=== PATIENT | male | born 1940 | race Caucasian/White ===

== ENCOUNTER 2019-08-07 16:59 | Inpatient (IN) | payer MEDICARE, OTHER ==
[2019-08-07] MEDS ORDERED: Docusate Sodium 100 MG Cap PO PRN (17:01)
[2019-08-07] MEDS ORDERED: Albuterol/Ipratropium 3.0-0.5 MG/3 ML Neb Soln NEB PRN (17:01)
[2019-08-07] MEDS ORDERED: Lidocaine 1% with EPINEPHrine 1:100,000 20 ML MDV ONE (17:18)
[2019-08-07] MEDS ORDERED: Lidocaine 1% with EPINEPHrine 1:100,000 20 ML MDV INJECT ONE (17:30)
[2019-08-07 18:05] LABS: CHLORIDE,CL 96 mEq/L (98-106); SODIUM,NA 132 mEq/L (136-145)
[2019-08-07] MEDS: Acetaminophen 325 MG Tab PO PRN (18:31)
[2019-08-07] MEDS: Sodium Chloride 0.9% 1,000 ML IV SCH (18:32)
[2019-08-07] MEDS: Clindamycin Phosphate in D5W 300 MG in Premix Bag 1 BAG IV SCH ×4 (18:32→23:57)
[2019-08-07] MEDS ORDERED: Ondansetron 4 MG/2 ML SDV IVPUSH PRN (18:49)
[2019-08-07] MEDS: Enoxaparin 40 MG/0.4 ML Syringe SUBCUT SCH (19:12)
[2019-08-07] MEDS: metFORMIN 500 MG Tab PO SCH (19:12)
[2019-08-07] MEDS: Ibuprofen 200 MG Tab PO PRN (19:13)
[2019-08-08] MEDS: Sodium Chloride 0.9% 1,000 ML IV SCH ×3 (03:35→21:37)
[2019-08-08] MEDS: Acetaminophen 325 MG Tab PO PRN ×4 (03:37→19:56)
[2019-08-08] MEDS: Clindamycin Phosphate in D5W 300 MG in Premix Bag 1 BAG IV SCH ×8 (06:02→23:37)
[2019-08-08] MEDS: Ibuprofen 200 MG Tab PO PRN ×3 (06:06→23:42)
[2019-08-08] MEDS: metFORMIN 500 MG Tab PO SCH ×2 (07:58→17:47)
[2019-08-08] MEDS: Lisinopril 20 MG Tab PO SCH (07:58)
--- NOTE | 2019-08-08 08:48 | OR ---
DATE OF OPERATION: 08/07/2019 Mr. Fang is admitted by Dawit Lakhani for sepsis related to a gluteal abscess. This is present in his inner lower gluteal region inferior and lateral to the perineum. He had a prior cyst there/boil, which over the last week has gotten larger. White count is elevated. He is getting admitted for IV antibiotics, and Dawit asked me to come and drain this before I left for the evening. DESCRIPTION OF PROCEDURE: The patient was placed on his left side with the right leg elevated. The large abscess in the infra-medial gluteal area on the left side was isolated, prepped with Betadine. 1% lidocaine was used for local anesthesia and topical ethyl chloride. A 1.5 to 2 cm incision was made with an 11 blade scalpel and voluminous amounts of drainage were obtained. This was brownish, fecal smelling-type liquid. Culture was obtained by Dawit Lakhani during this procedure. We were able to express significant and copious amounts of fluid out of this abscess area. We then packed it with approximately 6 to 7 inches iodoform gauze and placed a pressure dressing over the top of it. The patient tolerated the procedure well. There were no complications. SERA/VITALIY /[id number]
--- NOTE | 2019-08-08 14:39 | PCM.PN ---
- General Info Date of Service: 08/08/19 Admission Dx/Problem (Free Text): Abscess of Buttock Functional Status: Reports: Pain Controlled, Tolerating Diet - Review of Systems General: Reports: Fever, Weakness, Fatigue, Malaise HEENT: Reports: No Symptoms Pulmonary: Denies: Shortness of Breath, Cough Cardiovascular: Denies: Chest Pain, Edema, Lightheadedness Gastrointestinal: Denies: Abdominal Pain, Nausea, Vomiting Genitourinary: Reports: No Symptoms Skin: Reports: Other (discomfort to left buttock) Neurological: Reports: Weakness - Patient Data Vitals - Most Recent: Last Vital Signs Temp 97.7 F 08/08/19 11:59 Pulse 79 08/08/19 11:59 Resp 18 08/08/19 11:59 BP 130/62 08/08/19 11:59 Pulse Ox 98 08/08/19 11:59 Weight - Most Recent: 249 lb 8 oz I&O - Last 24 Hours: Intake & Output 08/07/19 08/08/19 08/08/19 22:59 06:59 14:59 Intake Total 50 1680 1000 Output Total 250 Balance 50 1430 1000 Lab Results Last 24 Hours: Laboratory Results - last 24 hr 08/07/19 08/07/19 08/07/19 Range/Units 17:01 17:01 17:15 WBC 25.5 H* (5.0-10.0) 10^3/uL RBC 5.13 (4.50-6.00) 10^6/uL Hgb 15.4 (14.0-18.0) g/dL Hct 45.2 (40.0-54.0) % MCV 88.1 (82.0-94.0) fL MCH 30.0 (27.0-32.0) pg MCHC 34.1 (33.0-38.0) g/dL RDW Coeff of Vivian 13.4 (11.0-15.0) % Plt Count 358 (150-400) 10^3/uL Add Manual Diff Yes Neutrophils % (Manual) 86 H (35-85) % Band Neutrophils % 6 H (0-5) % Lymphocytes % (Manual) 3 L (21-55) % Monocytes % (Manual) 5 (2-12) % Absolute Neutrophils (1.80-7.00) 10^3/uL Lymphocytes # (Manual) (1.00-4.80) 10^3/uL Monocytes # (Manual) (0.00-0.80) 10^3/uL Sodium (136-145) mEq/L Potassium (3.5-5.0) mEq/L Chloride (98-106) mEq/L Carbon Dioxide (21-32) mmol/L BUN (7-18) mg/dL Creatinine (0.7-1.3) mg/dL Est Cr Clr Drug Dosing Estimated GFR (MDRD) (>=60) mL/min Glucose (75-99) mg/dL POC Glucose (75-105) mg/dl Lactic Acid 1.8 (0.4-2.0) mmol/L Calcium (8.4-10.1) mg/dL Total Bilirubin (0.0-1.0) mg/dL AST (15-37) U/L ALT (12-78) U/L Alkaline Phosphatase (46-116) U/L C-Reactive Protein (0.2-0.8) mg/dL Total Protein (6.4-8.2) g/dL Albumin (3.4-5.0) g/dL Urine Color Yellow (YELLOW) Urine Appearance Slightly cloudy (CLEAR) Urine pH 5.5 (4.5-8.0) Ur Specific [place] >= 1.030 H (1.003-1.020) Urine Protein 100 H (NEGATIVE) mg/dL Urine Glucose (UA) 500 H (NEGATIVE) mg/dL Urine Ketones 40 H (NEGATIVE) mg/dL Urine Occult Blood Moderate H (NEGATIVE) Urine Nitrite Negative (NEGATIVE) Urine Bilirubin Negative (NEGATIVE) Urine Urobilinogen 1.0 (0.2-1.0) EU/dL Ur Leukocyte Esterase Negative (NEGATIVE) Urine RBC 0-5 (0-5) /HPF Urine WBC Not seen (0-5) /HPF Ur Epithelial Cells Occasional H (NOT SEEN) /HPF Amorphous Sediment Few H (NOT SEEN) /HPF Urine Mucus Few H (NOT SEEN) /HPF 08/07/19 08/08/19 08/08/19 Range/Units 17:15 06:50 06:50 WBC 22.5 H* (5.0-10.0) 10^3/uL RBC 4.53 (4.50-6.00) 10^6/uL Hgb 13.6 L (14.0-18.0) g/dL Hct 40.6 (40.0-54.0) % MCV 89.6 (82.0-94.0) fL MCH 30.0 (27.0-32.0) pg MCHC 33.5 (33.0-38.0) g/dL RDW Coeff of Vivian 13.3 (11.0-15.0) % Plt Count 305 (150-400) 10^3/uL Add Manual Diff Yes Neutrophils % (Manual) 67 (35-85) % Band Neutrophils % 18 H (0-5) % Lymphocytes % (Manual) 10 L (21-55) % Monocytes % (Manual) 5 (2-12) % Absolute Neutrophils 19.13 H (1.80-7.00) 10^3/uL Lymphocytes # (Manual) 2.25 (1.00-4.80) 10^3/uL Monocytes # (Manual) 1.13 H (0.00-0.80) 10^3/uL Sodium 132 L 134 L (136-145) mEq/L Potassium 3.9 3.7 (3.5-5.0) mEq/L Chloride 96 L 101 (98-106) mEq/L Carbon Dioxide 20 L 23 (21-32) mmol/L BUN 19 H 21 H (7-18) mg/dL Creatinine 1.4 H 1.4 H (0.7-1.3) mg/dL Est Cr Clr Drug Dosing TNP 48.50 Estimated GFR (MDRD) 49 L 49 L (>=60) mL/min Glucose 267 H D 176 H D (75-99) mg/dL POC Glucose (75-105) mg/dl Lactic Acid (0.4-2.0) mmol/L Calcium 8.8 7.8 L (8.4-10.1) mg/dL Total Bilirubin 0.8 (0.0-1.0) mg/dL AST 21 (15-37) U/L ALT 32 (12-78) U/L Alkaline Phosphatase 67 (46-116) U/L C-Reactive Protein 19.7 H 22.1 H (0.2-0.8) mg/dL Total Protein 7.9 (6.4-8.2) g/dL Albumin 3.1 L (3.4-5.0) g/dL Urine Color (YELLOW) Urine Appearance (CLEAR) Urine pH (4.5-8.0) Ur Specific [place] (1.003-1.020) Urine Protein (NEGATIVE) mg/dL Urine Glucose (UA) (NEGATIVE) mg/dL Urine Ketones (NEGATIVE) mg/dL Urine Occult Blood (NEGATIVE) Urine Nitrite (NEGATIVE) Urine Bilirubin (NEGATIVE) Urine Urobilinogen (0.2-1.0) EU/dL Ur Leukocyte Esterase (NEGATIVE) Urine RBC (0-5) /HPF Urine WBC (0-5) /HPF Ur Epithelial Cells (NOT SEEN) /HPF Amorphous Sediment (NOT SEEN) /HPF Urine Mucus (NOT SEEN) /HPF 08/08/19 Range/Units 07:54 WBC (5.0-10.0) 10^3/uL RBC (4.50-6.00) 10^6/uL Hgb (14.0-18.0) g/dL Hct (40.0-54.0) % MCV (82.0-94.0) fL MCH (27.0-32.0) pg MCHC (33.0-38.0) g/dL RDW Coeff of Vivian (11.0-15.0) % Plt Count (150-400) 10^3/uL Add Manual Diff Neutrophils % (Manual) (35-85) % Band Neutrophils % (0-5) % Lymphocytes % (Manual) (21-55) % Monocytes % (Manual) (2-12) % Absolute Neutrophils (1.80-7.00) 10^3/uL Lymphocytes # (Manual) (1.00-4.80) 10^3/uL Monocytes # (Manual) (0.00-0.80) 10^3/uL Sodium (136-145) mEq/L Potassium (3.5-5.0) mEq/L Chloride (98-106) mEq/L Carbon Dioxide (21-32) mmol/L BUN (7-18) mg/dL Creatinine (0.7-1.3) mg/dL Est Cr Clr Drug Dosing Estimated GFR (MDRD) (>=60) mL/min Glucose (75-99) mg/dL POC Glucose 162 H (75-105) mg/dl Lactic Acid (0.4-2.0) mmol/L Calcium (8.4-10.1) mg/dL Total Bilirubin (0.0-1.0) mg/dL AST (15-37) U/L ALT (12-78) U/L Alkaline Phosphatase (46-116) U/L C-Reactive Protein (0.2-0.8) mg/dL Total Protein (6.4-8.2) g/dL Albumin (3.4-5.0) g/dL Urine Color (YELLOW) Urine Appearance (CLEAR) Urine pH (4.5-8.0) Ur Specific [place] (1.003-1.020) Urine Protein (NEGATIVE) mg/dL Urine Glucose (UA) (NEGATIVE) mg/dL Urine Ketones (NEGATIVE) mg/dL Urine Occult Blood (NEGATIVE) Urine Nitrite (NEGATIVE) Urine Bilirubin (NEGATIVE) Urine Urobilinogen (0.2-1.0) EU/dL Ur Leukocyte Esterase (NEGATIVE) Urine RBC (0-5) /HPF Urine WBC (0-5) /HPF Ur Epithelial Cells (NOT SEEN) /HPF Amorphous Sediment (NOT SEEN) /HPF Urine Mucus (NOT SEEN) /HPF Darryl Results Last 24 Hours: Microbiology 08/07/19 17:15 Wound Culture - Preliminary Groin, Left Gram Positive Cocci 08/07/19 17:01 Influenza Type A Antigen Screen - Final Nasopharyngeal Swab NEGATIVE INFLUENZA A VIRUS AG REFERENCE RANGE: NEGATIVE Influenza Type B Antigen Screen - Final NEGATIVE INFLUENZA B VIRUS AG REFERENCE RANGE: NEGATIVE Med Orders - Current: Current Medications Acetaminophen (Tylenol) 650 mg PO Q4H PRN PRN Reason: Pain (Mild 1-3)/fever Last Admin: 08/08/19 07:58 Dose: 650 mg Albuterol/Ipratropium (Duoneb 3.0-0.5 Mg/3 Ml) 3 ml NEB Q4H PRN PRN Reason: Shortness Of Breath/wheezing Docusate Sodium (Colace) 100 mg PO BID PRN PRN Reason: Constipation Enoxaparin Sodium (Lovenox) 40 mg SUBCUT Q24H [facility] Last Admin: 08/07/19 19:12 Dose: 40 mg Clindamycin Phosphate 300 mg/ (Premix) 50 mls @ 100 mls/hr IV Q6H [facility] Last Admin: 08/08/19 11:56 Dose: 100 mls/hr Sodium Chloride (Normal Saline) 1,000 mls @ 125 mls/hr IV ASDIRECTED [facility] Last Admin: 08/08/19 13:04 Dose: 125 mls/hr Ibuprofen (Motrin) 400 mg PO Q6H PRN PRN Reason: Pain (mild 1-3) Last Admin: 08/08/19 06:06 Dose: 400 mg Lisinopril (Prinivil) 20 mg PO DAILY [facility] Last Admin: 08/08/19 07:58 Dose: 20 mg Metformin HCl (Glucophage) 500 mg PO BIDMEALS [facility] Last Admin: 08/08/19 07:58 Dose: 500 mg Ondansetron HCl (Zofran) 4 - 8 mg IVPUSH Q6H PRN PRN Reason: Nausea/Vomiting Last Admin: 08/07/19 19:11 Dose: 4 mg Discontinued Medications Lidocaine/Epinephrine (Xylocaine 1% With Epinephrine 1:100,000) Confirm Administered Dose 20 ml .ROUTE .STK-MED ONE Stop: 08/07/19 17:19 Last Admin: 08/07/19 18:41 Dose: Not Given Lidocaine/Epinephrine (Xylocaine 1% With Epinephrine 1:100,000) 20 ml INJECT ONETIME ONE Stop: 08/07/19 17:31 Last Admin: 08/07/19 17:35 Dose: 20 ml - Exam General: Alert, Oriented HEENT: Mucous Membr. Moist/[place] Neck: Supple Lungs: Clear to Auscultation, Normal Respiratory Effort Cardiovascular: Regular Rate, Regular Rhythm GI/Abdominal Exam: Normal Bowel Sounds, Soft, Non-Tender Extremities: Normal Inspection, No Pedal Edema Skin: Other (Patient has enlarged erythematous area to left buttock near the crease. TEnder. Dressing is saturated with brownish foul smelling drainage. Packing removed and repacked per Dr. Macias. Patient tolerated well. ) Wound/Incisions: Erythema Improving Neurological: No New Focal Deficit Sepsis Event Note - Evaluation Sepsis Screening Result: No Definite Risk - Focused Exam Vital Signs: Vital Signs Temp Temp Pulse Resp BP BP BP 08/08/19 11:59 97.7 F 79 18 130/62 08/08/19 08:00 99.7 F 95 18 139/61 08/08/19 07:58 139/61 08/08/19 06:58 100.2 F 08/08/19 06:06 99.9 F 08/08/19 06:03 99.9 F 08/08/19 04:44 101 F H 08/08/19 03:37 99.7 F 92 20 148/70 H Pulse Ox 08/08/19 11:59 98 08/08/19 08:00 95 08/08/19 07:58 08/08/19 06:58 08/08/19 06:06 08/08/19 06:03 08/08/19 04:44 08/08/19 03:37 98 Date Exam was Performed: 08/08/19 Time Exam was Performed: 14:33 - Problem List & Annotations (1) Abscess of buttock, left SNOMED Code(s): 40759908 Code(s): L02.31 - CUTANEOUS ABSCESS OF BUTTOCK Status: Acute Priority: High Current Visit: Yes (2) CKD (chronic kidney disease) SNOMED Code(s): 233640436 Code(s): N18.9 - CHRONIC KIDNEY DISEASE, UNSPECIFIED Status: Acute Current Visit: Yes Qualifiers: Chronic kidney disease stage: stage 3 (moderate) Qualified Code(s): N18.3 - Chronic kidney disease, stage 3 (moderate) - Problem List Review Problem List Initiated/Reviewed/Updated: Yes - Assessment Assessment:: Abscess of Left Buttock Confusion CKD, stage 3 - Plan Plan:: Patient is doing much better today. Is alert, conversive, sitting up at edge of bed. He states pain is much improved today. Continues to run low grade fevers today. Pulse rate 80-100, improved. WBC 22.5, down from 25.5 yesterday. CRP increased to 22.1. Creatinine stable at 1.4. Dressing removed per Dr. Macias. Does continue to have redness, swelling and firmness to left buttock but Dr. Macias reports improvement from yesterday's exam. Bandages are saturated with brownish drainage. Packing removed. Foul odor noted. Repacked per Dr. Macias. Did contact DR. Malave at [facility] for recommendations for CT to determine if warranted to rule out fistula due to drainage and odor with abscess so close to rectal area. He advised to treat and wait as fistula would be very hard to see with swelling and fluid and likely does not warrant any surgical treatment until active infection is improved. Advised to monitor and recheck in [address] or surgical evaluation if continues to have open area with ongoing drainage or recurrence of abscess. Will continue with IV Cleocin. Await full culture report. Repeat labs in am. Change bandages as needed.
[2019-08-08] MEDS: Enoxaparin 40 MG/0.4 ML Syringe SUBCUT SCH (18:34)
[2019-08-09] MEDS: Clindamycin Phosphate in D5W 300 MG in Premix Bag 1 BAG IV SCH ×8 (05:56→23:23)
[2019-08-09] MEDS: Sodium Chloride 0.9% 1,000 ML IV SCH ×3 (05:58→23:21)
[2019-08-09] MEDS: Lisinopril 20 MG Tab PO SCH (07:34)
[2019-08-09] MEDS: metFORMIN 500 MG Tab PO SCH ×2 (07:34→17:22)
[2019-08-09] MEDS: Acetaminophen 325 MG Tab PO PRN ×3 (07:51→23:25)
--- NOTE | 2019-08-09 10:16 | PCM.PN ---
- General Info Date of Service: 08/09/19 Admission Dx/Problem (Free Text): Abscess of Buttock Functional Status: Reports: Pain Controlled, Tolerating Diet, Ambulating - Review of Systems General: Reports: Fever, Weakness, Fatigue, Malaise HEENT: Reports: No Symptoms Pulmonary: Denies: Shortness of Breath, Cough Cardiovascular: Denies: Chest Pain, Edema, Lightheadedness Gastrointestinal: Denies: Abdominal Pain, Nausea, Vomiting Genitourinary: Reports: No Symptoms Musculoskeletal: Reports: Leg Pain Skin: Reports: Other (redness and swelling to left medial buttock area) Neurological: Reports: Weakness - Patient Data Vitals - Most Recent: Last Vital Signs Temp 100.2 F 08/09/19 08:00 Pulse 85 08/09/19 08:00 Resp 18 08/09/19 08:00 BP 139/59 L 08/09/19 08:00 Pulse Ox 95 08/09/19 08:00 Weight - Most Recent: 249 lb 8 oz I&O - Last 24 Hours: Intake & Output 08/08/19 08/09/19 08/09/19 22:59 06:59 14:59 Intake Total 1050 1050 Balance 1050 1050 Lab Results Last 24 Hours: Laboratory Results - last 24 hr 08/09/19 08/09/19 08/09/19 Range/Units 07:00 07:00 07:34 WBC 19.4 H (5.0-10.0) 10^3/uL RBC 4.42 L (4.50-6.00) 10^6/uL Hgb 13.3 L (14.0-18.0) g/dL Hct 39.6 L (40.0-54.0) % MCV 89.6 (82.0-94.0) fL MCH 30.1 (27.0-32.0) pg MCHC 33.6 (33.0-38.0) g/dL RDW Coeff of Vivian 13.3 (11.0-15.0) % Plt Count 313 (150-400) 10^3/uL Neut % (Auto) 89.4 H (35-85) % Lymph % (Auto) 6.1 L (10-55) % [place] % (Auto) 3.8 (0-16) % Eos % (Auto) 0.6 (0-5) % Baso % (Auto) 0.1 (0-3) % Neut # (Auto) 17.34 H (1.80-7.00) 10^3/uL Lymph # (Auto) 1.18 (1.00-4.80) 10^3/uL [place] # (Auto) 0.74 (0.00-0.80) 10^3/uL Eos # (Auto) 0.12 (0.00-0.45) 10^3/uL Baso # (Auto) 0.02 10^3/uL Sodium 137 (136-145) mEq/L Potassium 3.8 (3.5-5.0) mEq/L Chloride 105 (98-106) mEq/L Carbon Dioxide 23 (21-32) mmol/L BUN 17 (7-18) mg/dL Creatinine 1.2 (0.7-1.3) mg/dL Est Cr Clr Drug Dosing 56.58 mL/min Estimated GFR (MDRD) 59 L (>=60) mL/min Glucose 159 H (75-99) mg/dL POC Glucose 148 H (75-105) mg/dl Calcium 8.0 L (8.4-10.1) mg/dL C-Reactive Protein 31.9 H (0.2-0.8) mg/dL Darryl Results Last 24 Hours: Microbiology 08/07/19 17:15 Wound Culture - Final Groin, Left Enterococcus Faecalis 08/07/19 17:20 Aerobic Blood Culture - Preliminary Blood - Venous NO GROWTH AFTER 1 DAY Anaerobic Blood Culture - Preliminary NO GROWTH AFTER 1 DAY 08/07/19 17:15 Aerobic Blood Culture - Preliminary Blood - Venous - Lab Draw NO GROWTH AFTER 1 DAY Anaerobic Blood Culture - Preliminary NO GROWTH AFTER 1 DAY Med Orders - Current: Current Medications Acetaminophen (Tylenol) 650 mg PO Q4H PRN PRN Reason: Pain (Mild 1-3)/fever Last Admin: 08/09/19 07:51 Dose: 650 mg Albuterol/Ipratropium (Duoneb 3.0-0.5 Mg/3 Ml) 3 ml NEB Q4H PRN PRN Reason: Shortness Of Breath/wheezing Docusate Sodium (Colace) 100 mg PO BID PRN PRN Reason: Constipation Enoxaparin Sodium (Lovenox) 40 mg SUBCUT Q24H [facility] Last Admin: 08/08/19 18:34 Dose: 40 mg Clindamycin Phosphate 300 mg/ (Premix) 50 mls @ 100 mls/hr IV Q6H [facility] Last Admin: 08/09/19 05:56 Dose: 100 mls/hr Sodium Chloride (Normal Saline) 1,000 mls @ 125 mls/hr IV ASDIRECTED [facility] Last Admin: 08/09/19 05:58 Dose: 125 mls/hr Ibuprofen (Motrin) 400 mg PO Q6H PRN PRN Reason: Pain (mild 1-3) Last Admin: 08/08/19 23:42 Dose: 400 mg Lisinopril (Prinivil) 20 mg PO DAILY [facility] Last Admin: 08/09/19 07:34 Dose: 20 mg Metformin HCl (Glucophage) 500 mg PO BIDMEALS [facility] Last Admin: 08/09/19 07:34 Dose: 500 mg Ondansetron HCl (Zofran) 4 - 8 mg IVPUSH Q6H PRN PRN Reason: Nausea/Vomiting Last Admin: 08/07/19 19:11 Dose: 4 mg Discontinued Medications Lidocaine/Epinephrine (Xylocaine 1% With Epinephrine 1:100,000) Confirm Administered Dose 20 ml .ROUTE .STK-MED ONE Stop: 08/07/19 17:19 Last Admin: 08/07/19 18:41 Dose: Not Given Lidocaine/Epinephrine (Xylocaine 1% With Epinephrine 1:100,000) 20 ml INJECT ONETIME ONE Stop: 08/07/19 17:31 Last Admin: 08/07/19 17:35 Dose: 20 ml - Exam General: Alert, Oriented HEENT: Mucous Membr. Moist/[place] Neck: Supple Lungs: Clear to Auscultation, Normal Respiratory Effort Cardiovascular: Regular Rate, Regular Rhythm GI/Abdominal Exam: Normal Bowel Sounds, Soft, Non-Tender Extremities: Normal Inspection, Increased Warmth, Redness Skin: Other (Patient has redness and warmth to left inner thigh/gluteal area. Much improved. Still continues to have light brown discharge from the area. Less tender.) Wound/Incisions: Drainage, Erythema Improving Neurological: No New Focal Deficit Sepsis Event Note - Evaluation Sepsis Screening Result: No Definite Risk - Focused Exam Vital Signs: Vital Signs Temp Temp Pulse Resp BP BP BP 08/09/19 08:00 100.2 F 85 18 139/59 L 08/09/19 07:34 139/59 L 08/09/19 04:00 98.3 F 84 16 147/66 H 08/08/19 23:52 100.1 F 83 20 137/56 L 08/08/19 23:42 100.1 F Pulse Ox 08/09/19 08:00 95 08/09/19 07:34 08/09/19 04:00 95 08/08/19 23:52 95 08/08/19 23:42 Date Exam was Performed: 08/09/19 Time Exam was Performed: 10:10 - Problem List & Annotations (1) Abscess of buttock, left SNOMED Code(s): 37967292 Code(s): L02.31 - CUTANEOUS ABSCESS OF BUTTOCK Status: Acute Priority: High Current Visit: Yes (2) CKD (chronic kidney disease) SNOMED Code(s): 110550451 Code(s): N18.9 - CHRONIC KIDNEY DISEASE, UNSPECIFIED Status: Acute Current Visit: Yes Qualifiers: Chronic kidney disease stage: stage 3 (moderate) Qualified Code(s): N18.3 - Chronic kidney disease, stage 3 (moderate) - Problem List Review Problem List Initiated/Reviewed/Updated: Yes - Assessment Assessment:: Abscess of Left Buttock Confusion CKD, stage 3 - Plan Plan:: Patient is doing much better today. Is alert, conversive, sitting up at edge of bed. He states pain is much improved today. Continues to run low grade fevers today. Pulse rate 80-100, improved. WBC 22.5, down from 25.5 yesterday. CRP increased to 22.1. Creatinine stable at 1.4. Dressing removed per Dr. Macias. Does continue to have redness, swelling and firmness to left buttock but Dr. Macias reports improvement from yesterday's exam. Bandages are saturated with brownish drainage. Packing removed. Foul odor noted. Repacked per Dr. Macias. Did contact DR. Malave at [facility] for recommendations for CT to determine if warranted to rule out fistula due to drainage and odor with abscess so close to rectal area. He advised to treat and wait as fistula would be very hard to see with swelling and fluid and likely does not warrant any surgical treatment until active infection is improved. Advised to monitor and recheck in [address] or surgical evaluation if continues to have open area with ongoing drainage or recurrence of abscess. Will continue with IV Cleocin. Await full culture report. Repeat labs in am. Change bandages as needed. 08-09-2019 Patient continues to improve. Still has low grade temps at 100. Is alert and conversive. Eating well. Area is tender. Much less redness and warmth each day. Does continue to have moderate amount of brownish drainage to bandage. Less odor noted. WBC is improved to 19.4 today. CRP has increased to 31.9. Creatinine stable, improved to 1.2. Continue with IV Cleocin. Instruct on dressing changes. Repeat labs in am. Possible discharge home tomorrow on oral meds.
[2019-08-09] MEDS: Ibuprofen 200 MG Tab PO PRN (14:56)
[2019-08-09] MEDS: Enoxaparin 40 MG/0.4 ML Syringe SUBCUT SCH (18:04)
[2019-08-10] MEDS: Ibuprofen 200 MG Tab PO PRN (02:40)
[2019-08-10] MEDS: Clindamycin Phosphate in D5W 300 MG in Premix Bag 1 BAG IV SCH ×2 (05:27)
[2019-08-10 07:38] LABS: CHLORIDE,CL 105 mEq/L (98-106); SODIUM,NA 137 mEq/L (136-145)
[2019-08-10] MEDS: Acetaminophen 325 MG Tab PO PRN (07:41)
[2019-08-10] MEDS: Lisinopril 20 MG Tab PO SCH (07:41)
[2019-08-10] MEDS: metFORMIN 500 MG Tab PO SCH (07:41)
--- NOTE | 2019-08-10 09:18 | PCM.DCSUM1 ---
Discharge Summary - Discharge Data Discharge Date: 08/10/19 Discharge Disposition: Home, Self-Care 01 Condition: Good - Referral to Home Health Primary Care Physician: Mai Lakhani PA-C - Discharge Diagnosis/Problem(s) (1) Abscess of buttock, left SNOMED Code(s): 68211241 ICD Code: L02.31 - CUTANEOUS ABSCESS OF BUTTOCK Status: Acute Priority: High - Patient Summary/Data Hospital Course: Cricket is a 79 year old male who was admitted to the hospital 08/07/2019 for a left buttock ulcer. Dr. Macias did I & D of area on 08/07/2019 and culture was obtained. Culture showed enterococcus. Patient was admitted for IV antibiotics. Throughout hospital stay, area of redness improved. Area was packed daily with iodoform. Wound continued to drain purulent drainage. Patient was febrile with temp of 103.1 on admit. Patient continued to have low grade temperatures, but no elevated temperature within 24 hours of discharge. On day of discharge, patient was feeling well and had no complaints. Did continue to have scrotal swelling, but no significant tenderness or erythema. Improvement noted from time of admission. Blood cultures were negative. WBC was 25.5 on admit and had improved to 17.1 on discharge. CRP improved from highest at 31.9 down to 23.7 on day of discharge. Patient will be discharged home on clindamycin, four times daily, for ten additional days. was taught proper dressing changes and is advised to pack and change dressing daily. Patient will follow up with Dr. Macias 2019 at 10 am for recheck. - Patient Instructions Diet: Usual Diet as Tolerated Activity: As Tolerated Wound/Incision Care: Change Dressing Daily Notify Provider of: Fever, Increased Pain, Swelling and Redness (worsening), Drainage (worsening) - Discharge Plan *PRESCRIPTION DRUG MONITORING PROGRAM REVIEWED*: Not Applicable *COPY OF PRESCRIPTION DRUG MONITORING REPORT IN PATIENT AVA: Not Applicable Prescriptions/Med Rec: Clindamycin HCl 150 mg PO QID 10 Days #40 capsule Home Medications: Home Meds Fish Oil/[place]-3 Fatty Acids [Fish Oil 1,000 MG] 1,000 mg PO DAILY 08/07/19 [ History] lisinopriL [Lisinopril] 20 mg PO DAILY 08/07/19 [History] metFORMIN HCl [Metformin HCl] 500 mg PO BID 08/07/19 [History] Clindamycin HCl 150 mg PO QID 10 Days #40 capsule 08/10/19 [Rx] Patient Handouts: Skin Abscess, [id number] Referrals: Elvis Macias MD [ED Physician] - - Discharge Summary/Plan Comment DC Time >30 min.: No - General Info Date of Service: 08/10/19 Admission Dx/Problem (Free Text: Abscess of Buttock Functional Status: Reports: Pain Controlled, Tolerating Diet, Ambulating, Urinating. Denies: New Symptoms - Review of Systems General: Denies: Fever, Chills Pulmonary: Reports: No Symptoms Cardiovascular: Reports: No Symptoms Gastrointestinal: Reports: No Symptoms Genitourinary: Reports: No Symptoms Skin: Reports: Other (cellulitis improving) Neurological: Reports: No Symptoms - Patient Data Vitals - Most Recent: Last Vital Signs Temp 99.4 F 08/10/19 07:44 Pulse 82 08/10/19 07:44 Resp 18 08/10/19 07:44 BP 151/72 H 08/10/19 07:44 Pulse Ox 97 08/10/19 07:44 Weight - Most Recent: 249 lb 8 oz I&O - Last 24 hours: Intake & Output 08/09/19 08/10/19 08/10/19 22:59 06:59 14:59 Intake Total 50 1050 Balance 50 1050 Lab Results - Last 24 hrs: Laboratory Results - last 24 hr 08/10/19 08/10/19 Range/Units 07:00 07:00 WBC 17.1 H (5.0-10.0) 10^3/uL RBC 4.29 L (4.50-6.00) 10^6/uL Hgb 12.8 L (14.0-18.0) g/dL Hct 38.1 L (40.0-54.0) % MCV 88.8 (82.0-94.0) fL MCH 29.8 (27.0-32.0) pg MCHC 33.6 (33.0-38.0) g/dL RDW Coeff of Vivian 13.5 (11.0-15.0) % Plt Count 344 (150-400) 10^3/uL Neut % (Auto) 85.1 H (35-85) % Lymph % (Auto) 8.9 L (10-55) % [place] % (Auto) 4.7 (0-16) % Eos % (Auto) 1.2 (0-5) % Baso % (Auto) 0.1 (0-3) % Neut # (Auto) 14.54 H (1.80-7.00) 10^3/uL Lymph # (Auto) 1.52 (1.00-4.80) 10^3/uL [place] # (Auto) 0.80 (0.00-0.80) 10^3/uL Eos # (Auto) 0.20 (0.00-0.45) 10^3/uL Baso # (Auto) 0.02 10^3/uL Sodium 137 (136-145) mEq/L Potassium 3.9 (3.5-5.0) mEq/L Chloride 105 (98-106) mEq/L Carbon Dioxide 23 (21-32) mmol/L BUN 15 (7-18) mg/dL Creatinine 1.1 (0.7-1.3) mg/dL Est Cr Clr Drug Dosing 61.73 mL/min Estimated GFR (MDRD) > 60 (>=60) mL/min Glucose 209 H D (75-99) mg/dL Calcium 7.9 L (8.4-10.1) mg/dL C-Reactive Protein 23.7 H (0.2-0.8) mg/dL JOSELO Results - Last 24 hrs: Microbiology 08/07/19 17:20 Aerobic Blood Culture - Preliminary Blood - Venous NO GROWTH AFTER 2 DAYS Anaerobic Blood Culture - Preliminary NO GROWTH AFTER 2 DAYS 08/07/19 17:15 Aerobic Blood Culture - Preliminary Blood - Venous - Lab Draw NO GROWTH AFTER 2 DAYS Anaerobic Blood Culture - Preliminary NO GROWTH AFTER 2 DAYS 08/07/19 17:15 Wound Culture - Final Groin, Left Enterococcus Faecalis Med Orders - Current: Current Medications Acetaminophen (Tylenol) 650 mg PO Q4H PRN PRN Reason: Pain (Mild 1-3)/fever Last Admin: 08/10/19 07:41 Dose: 650 mg Albuterol/Ipratropium (Duoneb 3.0-0.5 Mg/3 Ml) 3 ml NEB Q4H PRN PRN Reason: Shortness Of Breath/wheezing Docusate Sodium (Colace) 100 mg PO BID PRN PRN Reason: Constipation Enoxaparin Sodium (Lovenox) 40 mg SUBCUT Q24H [facility] Last Admin: 08/09/19 18:04 Dose: 40 mg Clindamycin Phosphate 300 mg/ (Premix) 50 mls @ 100 mls/hr IV Q6H [facility] Last Admin: 08/10/19 05:27 Dose: 100 mls/hr Sodium Chloride (Normal Saline) 1,000 mls @ 125 mls/hr IV ASDIRECTED [facility] Last Admin: 08/09/19 23:21 Dose: 125 mls/hr Ibuprofen (Motrin) 400 mg PO Q6H PRN PRN Reason: Pain (mild 1-3) Last Admin: 08/10/19 02:40 Dose: 400 mg Lisinopril (Prinivil) 20 mg PO DAILY [facility] Last Admin: 08/10/19 07:41 Dose: 20 mg Metformin HCl (Glucophage) 500 mg PO BIDMEALS [facility] Last Admin: 08/10/19 07:41 Dose: 500 mg Ondansetron HCl (Zofran) 4 - 8 mg IVPUSH Q6H PRN PRN Reason: Nausea/Vomiting Last Admin: 08/07/19 19:11 Dose: 4 mg Discontinued Medications Lidocaine/Epinephrine (Xylocaine 1% With Epinephrine 1:100,000) Confirm Administered Dose 20 ml .ROUTE .STK-MED ONE Stop: 08/07/19 17:19 Last Admin: 08/07/19 18:41 Dose: Not Given Lidocaine/Epinephrine (Xylocaine 1% With Epinephrine 1:100,000) 20 ml INJECT ONETIME ONE Stop: 08/07/19 17:31 Last Admin: 08/07/19 17:35 Dose: 20 ml - Exam Quality Assessment: Reports: DVT Prophylaxis General: Reports: Alert, Oriented, No Acute Distress Neck: Reports: Supple Lungs: Reports: Clear to Auscultation, Normal Respiratory Effort Cardiovascular: Reports: Regular Rate, Regular Rhythm GI/Abdominal Exam: Normal Bowel Sounds, Soft, Non-Tender, No Organomegaly, No Distention, No Abnormal Bruit, No Mass, Pelvis Stable (Male) Exam: Scrotal Swelling. No: Scrotum Tenderness (L), Scrotum Tenderness (R) Extremities: Normal Inspection, Normal Range of Motion, Non-Tender, No Pedal Edema, Normal Capillary Refill Wound/Incisions: Reports: Drainage (purulent drainage), Erythema Improving Neurological: Reports: No New Focal Deficit Psy/Mental Status: Reports: Alert, Normal Affect, Normal Mood
== END 2019-08-10 10:00 | disposition home or self-care (01) | DRG 603 ==
LOC: CC.MS 16:59 → UNDOADMIN 16:59 → CC.MS 17:01
PROVIDERS: ADMIT Physician Assistant Medical; ATTEND Family Medicine
PROC: 0Y910ZZ Drainage of Left Buttock, Open Approach (ICD-10-PCS; principal; 2019-08-07)
DX: L02.31 Cutaneous abscess of buttock (principal); N18.3 Chronic kidney disease, stage 3 (moderate); I10 Essential (primary) hypertension; B95.2 Enterococcus as the cause of diseases classified elsewhere; E11.9 Type 2 diabetes mellitus without complications; Z79.84 Long term (current) use of oral hypoglycemic drugs; Z79.899 Other long term (current) drug therapy; Z98.49 Cataract extraction status, unspecified eye
CPT/HCPCS: 36415; 71046; 80048; 80053; 81001; 82962; 83605; 85025; 86140; 87040; 87070; 87077; 87186; 87804; A9270-GY; J1650; J2405; J3490; J7030